=== PATIENT | male | born 1975 | race Caucasian/White ===

== ENCOUNTER → 2016-10-01 | Outpatient (CLI) | payer OTHER ==
--- NOTE | 2016-10-01 10:48 | REP ---
CT LUMBAR SPINE WITHOUT CONTRAST: HISTORY: Pseudoarthrosis. COMPARISON: MR 05/14/2014. There is no disc bulge or herniation at the L1-2 level. The L1 nerves exit the neural foramina without compression. A diffuse disc bulge is present at the L2-3 level. There is minimal compression of the thecal sac. The L2 nerves exit the neural foramina without compression. A diffuse disc bulge is present at the L3-4 level. There is hypertrophy of the ligamenta flava and posterior articulating facets. These findings produce minimal central canal stenosis. The L3 nerves exit the neural foramina without compression. The patient is status post L4-S1 anterior and posterior spinal fusion and L4-5 laminectomy. There is no definite disc bulge at the L4-5 level. There are 3 mm of grade 1 spondylolisthesis of L4 on 5. There is hypertrophy of the posterior articulating facets. The L4 nerves exit the neural foramina without compression. There is no definite disc bulge or herniation at the L5-S1 level. There is hypertrophy of the posterior articulating facets. There is compression of the L5 nerves in the neural foramina. The L3-4 through L5-S1 intervertebral discs are decreased in height consistent with disc degeneration. The vertebral bodies are normal in height. IMPRESSION: 1. Diffuse disc bulge at the 02/03 level with minimal thecal sac compression. 2. Minimal central canal stenosis at the L3-4 level secondary to disc bulge, ligamentous and facet hypertrophy. This is a new finding. 3. The patient is status post L4-S1 anterior and posterior spinal fusion and L5 laminectomy. There are 3 mm of grade 1 spondylolisthesis of L4 on 5. There is compression of the L5 nerves in the neural foramina. The postoperative change, spondylolisthesis and L5 nerve compression are new findings. Signed by Martín Putnam MD 10/01/2016 10:53 A
== END ==
LOC: M RAD 09:48
PROVIDERS: ATTEND Orthopaedic Surgery
DX: M96.0 Pseudarthrosis after fusion or arthrodesis (principal); M51.26 Other intervertebral disc displacement, lumbar region; M12.88 Other specific arthropathies, not elsewhere classified, other specified site; M43.16 Spondylolisthesis, lumbar region; Z98.890 Other specified postprocedural states